=== PATIENT | female | born 2000 | race Caucasian/White ===

== ENCOUNTER 2019-07-23 00:10 | Emergency (ER) | payer OTHER ==
[~2019-07-23] VITALS: Ht 160 cm; Wt 59.0 kg
[2019-07-23] MEDS ORDERED: REDNESS RELIEF15 M1 OP (01:52)
[2019-07-23] MEDS ORDERED: GENTAMICIN SULFA5 ML OP (01:52)
== END 2019-07-23 01:54 | disposition home or self-care (01) ==
LOC: ER 00:10
DX: H57.89 Other specified disorders of eye and adnexa (principal)